=== PATIENT | female | born 1980 | race Caucasian/White ===

== ENCOUNTER 2019-01-02 05:33 | Day surgery (SDC) | payer OTHER ==
[~2019-01-02 05:33] MED LIST: LEXAPRO5 MG; ZANTAC25 MG/1 ML
== END 2019-01-02 14:10 | disposition home or self-care (01) ==
LOC: CIR.AMB 05:33
PROVIDERS: Plastic Surgery
PROC: 0HPU0JZ Removal of Synthetic Substitute from Left Breast, Open Approach (ICD-10-PCS; 2019-01-02)
PROC: 0HPT0JZ Removal of Synthetic Substitute from Right Breast, Open Approach (ICD-10-PCS; 2019-01-02)
PROC: 0HRV0JZ Replacement of Bilateral Breast with Synthetic Substitute, Open Approach (ICD-10-PCS; 2019-01-02)
PROC: 0H0V0JZ Alteration of Bilateral Breast with Synthetic Substitute, Open Approach (ICD-10-PCS; principal; 2019-01-02 07:00)
DX: N64.82 Hypoplasia of breast (principal)